=== PATIENT | female | born 1985 | race African-American/Black ===

== ENCOUNTER 2021-03-10 09:15 | Emergency (ER) | payer OTHER ==
[~2021-03-10] VITALS: Ht 160 cm; Wt 59.0 kg
[2021-03-10 09:17] VITALS: BP 108/77
--- NOTE | 2021-03-10 09:22 | NUR ---
Patient discharged to home in stable condition. Written and verbal after care instructions given. Patient verbalizes understanding of instruction.
== END 2021-03-10 09:22 | disposition home or self-care (01) ==
LOC: ER 09:20
DX: S90.561A Insect bite (nonvenomous), right ankle, initial encounter (principal); W57.XXXA Bitten or stung by nonvenomous insect and other nonvenomous arthropods, initial encounter; Y93.89 Activity, other specified; Y92.89 Other specified places as the place of occurrence of the external cause; Y99.8 Other external cause status